=== PATIENT | female | born 1990 | race Caucasian/White ===

== ENCOUNTER 2016-08-20 10:29 | Emergency (ER) | payer OTHER ==
[~2016-08-20] VITALS: Ht 170.2 cm; Wt 82.6 kg
[2016-08-20 10:47] VITALS: BP 109/61
[2016-08-20] MEDS ORDERED: PREN1TAB80 PO (10:47)
--- NOTE | 2016-08-20 11:11 | PHYS DOC ---
Past Medical History Past Medical History: No Pertinent History Past Surgical History: No Surgical History Alcohol Use: None Drug Use: None Adult General Chief Complaint Chief Complaint: SHOULDER INJURY [facility] HPI Patient is a 25 year old female presents emergency department stating that she is having left upper shoulder pain. She states that she normally center; that she is and is unable to do this at this time. She states that she went to rollover on bed and got her left arm caught up in the blankets. She states this happened a few days ago. She states that she's been having is taken 500 mg she thinks of Tylenol for the pain. She states that pain still continues. Denies any numbness or tingling down to the lower extremities. She has equal mill order scheduler and equal strength bilaterally. Patient is right-hand dominant Review of Systems Review of Systems Constitutional: Denies fever or chills [] Eyes: Denies change in visual acuity, redness, or eye pain [] HENT: Denies nasal congestion or sore throat [] Respiratory: Denies cough or shortness of breath [] Cardiovascular: No additional information not addressed in HPI [] GI: Denies abdominal pain, nausea, vomiting, bloody stools or diarrhea [] : Denies dysuria or hematuria [] Musculoskeletal: Denies back pain. C/o right shoulder pain Integument: Denies rash or skin lesions [] Neurologic: Denies headache, focal weakness or sensory changes [] Allergies Allergies Allergies Coded Allergies Type Severity Reaction Last Updated Verified No Known Drug Allergies 08/20/16 No Physical Exam Physical Exam Constitutional: Well developed, well nourished, no acute distress, non-toxic appearance. [] HENT: Normocephalic, atraumatic, bilateral external ears normal, oropharynx moist, no oral exudates, nose normal. [] Eyes: PERRLA, EOMI, conjunctiva normal, no discharge. [] Neck: Normal range of motion, no tenderness, supple, no stridor. [] Cardiovascular:Heart rate regular rhythm, no murmur [] Lungs & Thorax: Bilateral breath sounds clear to auscultation [] Skin: Warm, dry, no erythema, no rash. [] Back: No tenderness Extremities: Right shoulder tenderness, no cyanosis, no clubbing, ROM intact, no edema. Peripheral pulses 2+ cap refill brisk less than 2 seconds. Patient with equal mill order scheduler and strength bilaterally. Neurologic: Alert and oriented X 3, normal motor function, normal sensory function, no focal deficits noted. [] Psychologic: Affect normal, judgement normal, mood normal. [] Current Patient Data Vital Signs Vital Signs Date Time Temp Pulse Resp B/P Pulse Ox O2 Delivery O2 Flow Rate FiO2 08/20/16 10:47 97.7 91 109/61 99 Room Air 97.7 EKG EKG [] Radiology/Procedures Radiology/Procedures [] Course & Med Decision Making Course & Med Decision Making Pertinent Labs and Imaging studies reviewed. (See chart for details) Recommended to use Tylenol for pain and discomfort and she is . Also recommended ice packs on 20 minutes off 20 minutes several times a day. Patient agrees with discharge instructions treatment regimens and follow-up recommendations. Also spoke with patient regards to not needing to have x-rays as there was not a injury involved. Patient will be discharged home in stable condition. Signs symptoms to return back to emergency department been provided. [] Dragon Disclaimer Dragon Disclaimer This electronic medical record was generated, in whole or in part, using a voice recognition dictation system. Departure Departure Impression: Primary Impression: Shoulder pain, acute Disposition: 01 HOME, SELF-CARE Condition: STABLE Referrals: UNKNOWN PCP NAME (PCP) Patient Instructions: Shoulder Pain, [id number] Additional Instructions: Activity as tolerated Tylenol for pain and discomfort. Do not take more than 4 grams of Tylenol in a 24 hour period Ice packs on 20 minutes and off 20 minutes several times a day Followup with primary care provider as needed Return to emergency department as needed for signs and symptoms that become worse. GUTIERREZ [employer] TE[employer]ICIAN Aug 20, 2016 11:11
== END 2016-08-20 11:10 | disposition home or self-care (01) ==
LOC: ER 10:29
DX: O26.899 Other specified pregnancy related conditions, unspecified trimester (principal); M25.512 Pain in left shoulder
CPT/HCPCS: 99282